=== PATIENT | female | born 1970 | race Caucasian/White ===

== ENCOUNTER 2016-11-16 14:57 | Emergency (ER) | payer OTHER ==
[2016-11-16 17:00] LABS: RED BLOOD COUNT 4.85 M/UL (4.00-5.10); WHITE BLOOD COUNT 12.6 K/UL (4.5-11.0)
[2016-11-16 17:15] LABS: BUN/CREATININE RATIO 26 (0-10)
== END 2016-11-16 18:42 | disposition home or self-care (01) ==
LOC: ER1 14:57
PROVIDERS: Physician Assistant Medical
DX: R10.13 Epigastric pain (principal); R19.7 Diarrhea, unspecified; R11.0 Nausea; R68.83 Chills (without fever); Z88.2 Allergy status to sulfonamides; Z90.49 Acquired absence of other specified parts of digestive tract
CPT/HCPCS: 36415; 80053; 81001; 82150; 83690; 84484; 85025; 96360; 96361; 99284; C9113; J2405; J7050; Q9962

== ENCOUNTER 2020-07-23 05:22 | Emergency (ER) | payer OTHER ==
[~2020-07-23 05:22] MED LIST: AZITHROMYCIN250 MG PO; COMBIVENT0.074 GM/I INH; FLOMAX0.4 MG PO; IPRAT-ALBUT 0.5-3 ML INH; LEVOCETIRIZINE D5 MG PO; LODINE CAP 300300 MG PO; MEDROL DOSEPAK 24 MG PO; MEDROL4 MG PO; NAPROSYN500 MG PO; NORCO 5-325 TA1 EACH PO; OMNICEF 300 MG300 MG PO; PANTOPRAZOLE SO40 MG PO; PROVENTIL HFA6.7 GM INH; RANITIDINE HCL150 MG PO; SINGULAIR10 MG PO; TESSALON PERLE100 MG PO; ZANAFLEX4 MG PO; ZOFRAN 4 MG TAB4 MG PO; ZOFRAN ODT 4 MG4 MG PO; ZOFRAN ODT 4 MG4 MG SL; ZOFRAN4 MG PO
[2020-07-23 06:59] LABS: HEMOGLOBIN 13.9 gm/dl (12.3-15.3); RED BLOOD COUNT 4.95 M/UL (4.00-5.10); WHITE BLOOD COUNT 6.1 K/UL (4.5-11.0)
[2020-07-23 07:32] LABS: BUN/CREATININE RATIO 17 (0-10)
== END 2020-07-23 12:20 | disposition home or self-care (01) ==
LOC: ER1 05:22
PROVIDERS: Family Medicine
DX: J20.9 Acute bronchitis, unspecified (principal); B34.9 Viral infection, unspecified; J00 Acute nasopharyngitis [common cold]; J45.909 Unspecified asthma, uncomplicated; Z88.2 Allergy status to sulfonamides; Z20.822 Contact with and (suspected) exposure to COVID-19
CPT/HCPCS: 71045; 80053; 81001; 85025; 87081; 87880; 93005; 99285; U0002

== ENCOUNTER 2021-04-26 19:57 | Emergency (ER) | payer OTHER ==
[2021-04-26 21:00] LABS: HEMOGLOBIN 13.6 gm/dl (12.3-15.3); RED BLOOD COUNT 4.63 M/UL (4.00-5.10); WHITE BLOOD COUNT 11.8 K/UL (4.5-11.0)
[2021-04-26 21:02] LABS: BORDETELLA PARAPERTUSSIS Not Detected (Not Detectd); BORDETELLA PERTUSSIS Not Detected (Not Detectd); CHLAMYDIA PNEUMONIAE Not Detected (Not Detectd); CORONAVIRUS HKU1 Not Detected (Not Detectd); CORONAVIRUS NL63 Not Detected (Not Detectd); CORONAVIRUS OC43 Not Detected (Not Detectd); CORONOAVIRUS 229E Not Detected (Not Detectd); HUMAN METAPNEUMOVIRUS Not Detected (Not Detectd); INFLUENZA A Not Detected (Not Detectd); INFLUENZA B Not Detected (Not Detectd); MYCOPLASMA PNEUMONIAE Not Detected (Not Detectd); PARAINFLUENZA VIRUS 1 Not Detected (Not Detectd); PARAINFLUENZA VIRUS 2 Not Detected (Not Detectd); PARAINFLUENZA VIRUS 3 Not Detected (Not Detectd); PARAINFLUENZA VIRUS 4 Not Detected (Not Detectd); RESPIRATORY SYNCYTIAL VIRUS Not Detected (Not Detectd)
[2021-04-26 21:45] LABS: BUN/CREATININE RATIO 14 (0-10)
[2021-04-26 22:02] LABS: HUMAN RHINOVIRUS/ENTEROVIRUS DETECTED (Not Detectd); SARS-CoV-2 NOT DETECTED (Not Detectd)
[2021-04-26] MEDS ORDERED: PREDNISONE 20 M20 MG PO (22:43)
[2021-04-26] MEDS ORDERED: CEFDINIR300 MG PO (22:43)
[2021-04-26] MEDS ORDERED: AZITHROMYCIN500 MG PO (22:43)
== END 2021-04-26 23:20 | disposition home or self-care (01) ==
LOC: ER1 19:57
PROVIDERS: Physician Assistant
DX: J18.9 Pneumonia, unspecified organism (principal); J45.901 Unspecified asthma with (acute) exacerbation; Z20.822 Contact with and (suspected) exposure to COVID-19; K21.9 Gastro-esophageal reflux disease without esophagitis; Z88.2 Allergy status to sulfonamides; Z90.710 Acquired absence of both cervix and uterus
CPT/HCPCS: 71045; 80053; 82550; 82553; 83874; 83880; 84484; 85025; 87081; 87633; 87880; 93005; 94640; 94664; 96372; 99285; J2930

== ENCOUNTER 2021-05-16 20:29 | Emergency (ER) | payer OTHER ==
[~2021-05-16 20:29] MED LIST changes: +AZITHROMYCIN500 MG PO; +CEFDINIR300 MG PO; +PREDNISONE 20 M20 MG PO
[2021-05-16] MEDS ORDERED: HYDROCODON-ACE1 EAC4 PO ×2 (21:22→21:24)
== END 2021-05-16 21:55 | disposition home or self-care (01) ==
LOC: ER1 20:29
DX: S86.812A Strain of other muscle(s) and tendon(s) at lower leg level, left leg, initial encounter (principal); J45.909 Unspecified asthma, uncomplicated; X50.9XXA Other and unspecified overexertion or strenuous movements or postures, initial encounter
CPT/HCPCS: 29530; 73564; 99283

== ENCOUNTER 2021-08-19 11:32 | Emergency (ER) | payer OTHER ==
[~2021-08-19 11:32] MED LIST changes: +HYDROCODON-ACE1 EAC4 PO
[2021-08-19 12:23] LABS: HEMOGLOBIN 12.2 gm/dl (12.3-15.3); RED BLOOD COUNT 4.23 M/UL (4.00-5.10); WHITE BLOOD COUNT 5.3 K/UL (4.5-11.0)
[2021-08-19 12:50] LABS: BUN/CREATININE RATIO 15 (0-10)
[2021-08-19] MEDS ORDERED: OMNICEF 300 MG300 MG PO (15:20)
== END 2021-08-19 16:27 | disposition home or self-care (01) ==
LOC: ER1 11:32
PROVIDERS: Emergency Medicine
DX: N20.0 Calculus of kidney (principal); Z87.442 Personal history of urinary calculi
CPT/HCPCS: 80053; 81001; 83605; 85025; 87040; 87086; 96374; 96375; 99284; J0696; J1885; J2270; J2405